=== PATIENT | male | born 1975 | race Caucasian/White ===

== ENCOUNTER 2019-07-13 12:06 | Emergency (ER) | payer OTHER ==
[~2019-07-13] VITALS: Ht 165.1 cm; Wt 117.9 kg
[2019-07-13 12:22] VITALS: Ht 165.1 cm; Wt 117.9 kg
[2019-07-13 13:40] VITALS: BP 177/94
== END 2019-07-13 13:40 | disposition home or self-care (01) ==
LOC: ED 12:06
DX: L03.116 Cellulitis of left lower limb (principal); I10 Essential (primary) hypertension; F31.9 Bipolar disorder, unspecified; F20.9 Schizophrenia, unspecified
CPT/HCPCS: 90715